=== PATIENT | female | born 1970 | race Caucasian/White ===

== ENCOUNTER 2017-11-13 20:03 | Inpatient (IN) | payer MEDICARE, MEDICAID ==
[~2017-11-13] VITALS: Ht 162.6 cm; Wt 109.8 kg
[~2017-11-13 20:03] MED LIST: ASPI325T8 PO; BUSP10TA PO; CHOL500016 PO; CLOM50CA2 PO; CRESTOR40 MG PO; LISI10TA2 PO; METF10003 PO; OMEG-33 PO; PRAZ1CAP2 PO; QUET100T PO; TRAZ150T49 PO
[2017-11-13 20:49] LABS: BASO # 0.1 x10^3/uL (0.0-0.2); BASO % 1 % (0-3); EOS # 0.1 x10^3/uL (0.0-0.7); EOS % 0 % (0-3); HEMATOCRIT 49.1 % (36.0-47.0); HEMOGLOBIN 16.5 g/dL (12.0-15.5); LYMPH # 2.5 x10^3/uL (1.0-4.8); LYMPH % 20 % (24-48); MEAN CORPUSCULAR HEMOGLOBIN 29 pg (25-35); MEAN CORPUSCULAR HGB CONC 34 g/dL (31-37); MEAN CORPUSCULAR VOLUME 85 fL (79-100); MONO # 0.7 x10^3/uL (0.0-1.1); MONO % 6 % (0-9); NEUT # 8.8 x10^3uL (1.8-7.7); NEUT % 73 % (31-73); PLATELET COUNT 337 x10^3/uL (140-400); RED BLOOD COUNT 5.76 x10^6/uL (3.50-5.40); RED CELL DISTRIBUTION WIDTH 12.8 % (11.5-14.5); WHITE BLOOD COUNT 12.1 x10^3/uL (4.0-11.0)
[2017-11-13 20:55] LABS: ALBUMIN 3.4 g/dL (3.4-5.0); ALBUMIN/GLOBULIN RATIO 0.8 (1.0-1.7); CREATININE 2.5 mg/dL (0.6-1.0); GFR 20.8; POTASSIUM 3.5 mmol/L (3.5-5.1); TOTAL BILIRUBIN 0.3 mg/dL (0.2-1.0); TOTAL PROTEIN 7.7 g/dL (6.4-8.2)
--- NOTE | 2017-11-13 21:19 | PHYS DOC ---
Past History Past Medical History: No Pertinent History Past Surgical History: No Surgical History Alcohol Use: None Drug Use: None Adult General Chief Complaint Chief Complaint: lightheadedness HPI HPI Patient is a 47 year old female who presents with complaint of of lightheadedness. Patient states that her symptoms have been present over the past 24 hours. Patient states that she is having difficulty ambulating due to her lightheadedness. Patient states that she feels like she is back pass out when she stands up. Patient notes that she has not been eating or drinking well over the past couple days. Patient denies any heat exposure and denies any recent travel. Patient currently does not have any complaints of pain. Patient has history of bipolar disorder, asthma, and is currently taking testosterone as she is currently undergoing gender reassignment. Patient denies any chest pain or shortness of breath. Patient has had nausea but denies vomiting or diarrhea. Denies any known history of kidney dysfunction. Review of Systems Review of Systems Constitutional: Denies fever or chills [] Eyes: Denies change in visual acuity, redness, or eye pain [] HENT: Denies nasal congestion or sore throat [] Respiratory: Denies cough or shortness of breath [] Cardiovascular: Near syncope, denies chest pain or edema[] GI: Denies abdominal pain, nausea, vomiting, bloody stools or diarrhea [] : Denies dysuria or hematuria [] Musculoskeletal: Denies back pain or joint pain [] Integument: Denies rash or skin lesions [] Neurologic: Denies headache, focal weakness or sensory changes [] All other systems were reviewed and found to be within normal limits, except as documented in this note. Current Medications Current Medications Current Medications Medications (Trade) Dose Ordered Sig/Aaron Start Time Stop Time Status Last Admin Dose Admin Sodium Chloride 1,000 ml @ 1,000 mls/hr Q1H 11/13/17 20:37 11/13/17 22:36 Allergies Allergies Allergies Coded Allergies Type Severity Reaction Last Updated Verified Penicillins Allergy Intermediate Rash 10/28/14 Yes cephalexin Allergy Intermediate Nausea 10/28/14 Yes ciprofloxacin Allergy Intermediate 02/29/16 Yes sulfamethoxazole Allergy Intermediate 02/29/16 Yes trimethoprim Allergy Intermediate 02/29/16 Yes Physical Exam Physical Exam Constitutional: Alert, afebrile, diaphoretic. [] HENT: Normocephalic, atraumatic, bilateral external ears normal, oropharynx moist, no oral exudates, nose normal. [] Eyes: PERRLA, EOMI, conjunctiva normal, no discharge. [] Neck: Normal range of motion, no tenderness, supple, no stridor. [] Cardiovascular: Tachycardic, regular rhythm, no murmur [] Lungs & Thorax: Bilateral breath sounds clear to auscultation [] Abdomen: Bowel sounds normal, soft, no tenderness, no masses, no pulsatile masses. [] Skin: Warm, moist, no erythema, no rash. [] Back: No tenderness, no CVA tenderness. [] Extremities: No tenderness, no cyanosis, no clubbing, ROM intact, no edema. [] Neurologic: Alert and oriented X 3, normal motor function, normal sensory function, no focal deficits noted. [] Current Patient Data Vital Signs Vital Signs Date Time Temp Pulse Resp B/P (MAP) Pulse Ox O2 Delivery O2 Flow Rate FiO2 11/14/17 01:20 98.6 94 22 135/93 (107) 98 Room Air Lab Results Laboratory Tests Test 11/13/17 20:12 11/13/17 20:22 Glucose (Fingerstick) 82 mg/dL (70-99) White Blood Count 12.1 x10^3/uL (4.0-11.0) H Red Blood Count 5.76 x10^6/uL (3.50-5.40) H Hemoglobin 16.5 g/dL (12.0-15.5) H Hematocrit 49.1 % (36.0-47.0) H Mean Corpuscular Volume 85 fL (79-100) Mean Corpuscular Hemoglobin 29 pg (25-35) Mean Corpuscular Hemoglobin Concent 34 g/dL (31-37) Red Cell Distribution Width 12.8 % (11.5-14.5) Platelet Count 337 x10^3/uL (140-400) Neutrophils (%) (Auto) 73 % (31-73) Lymphocytes (%) (Auto) 20 % (24-48) L Monocytes (%) (Auto) 6 % (0-9) Eosinophils (%) (Auto) 0 % (0-3) Basophils (%) (Auto) 1 % (0-3) Neutrophils # (Auto) 8.8 x10^3uL (1.8-7.7) H Lymphocytes # (Auto) 2.5 x10^3/uL (1.0-4.8) Monocytes # (Auto) 0.7 x10^3/uL (0.0-1.1) Eosinophils # (Auto) 0.1 x10^3/uL (0.0-0.7) Basophils # (Auto) 0.1 x10^3/uL (0.0-0.2) Sodium Level 137 mmol/L (136-145) Potassium Level 3.5 mmol/L (3.5-5.1) Chloride Level 96 mmol/L (98-107) L Carbon Dioxide Level 29 mmol/L (21-32) Anion Gap 12 (6-14) Blood Urea Nitrogen 15 mg/dL (7-20) Creatinine 2.5 mg/dL (0.6-1.0) H Estimated GFR (Cockcroft-Gault) 20.8 BUN/Creatinine Ratio 6 (6-20) Glucose Level 73 mg/dL (70-99) Calcium Level 9.0 mg/dL (8.5-10.1) Total Bilirubin 0.3 mg/dL (0.2-1.0) Aspartate Amino Transferase (AST) 58 U/L (15-37) H Alanine Aminotransferase (ALT) 70 U/L (14-59) H Alkaline Phosphatase 156 U/L (46-116) H Total Protein 7.7 g/dL (6.4-8.2) Albumin 3.4 g/dL (3.4-5.0) Albumin/Globulin Ratio 0.8 (1.0-1.7) L EKG EKG Interpreted by me: Heart rate 90, sinus rhythm, normal intervals, normal axis, no acute ST/T-wave abnormalities present[] Radiology/Procedures Radiology/Procedures Not performed[] Course & Med Decision Making Course & Med Decision Making Pertinent Labs and Imaging studies reviewed. (See chart for details) Patient was given 2 L of IV fluids in the emergency department which fulfilled the 30mL/kg bolus based off of ideal body weight. The patient was found to have evidence of urinary tract infection. Given patient's lactic acidosis, the patient met criteria for severe sepsis. Patient was initiated on IV antibiotics with meropenem due to listed multiple allergies to other antibiotics. The patient will need admission for further further treatment of sepsis. I spoke with Dr. Magana who accepted care of patient in hospital. Critical care time excluding procedures: 40 minutes Dragon Disclaimer Dragon Disclaimer This electronic medical record was generated, in whole or in part, using a voice recognition dictation system. Departure Departure: Impression: Primary Impression: Urinary tract infection Additional Impression: Severe sepsis Disposition: 09 ADMITTED INPATIENT Admitting Physician: Joe Magana Condition: GUARDED Referrals: PCP,NO (PCP) Problem Qualifiers Primary Impression: Urinary tract infection Urinary tract infection type: site unspecified Hematuria presence: without hematuria Qualified Codes: N39.0 - Urinary tract infection, site not specified ANTIONE ROYAL MD Nov 13, 2017 21:19
[2017-11-13] MEDS: IV NORMAL SALINE 1,000ML 1,000 ML IV SCH ×2 (21:49→21:50)
[2017-11-13 22:20] LABS: BACTERIA,URINE 0 /HPF (0-FEW); BILIRUBIN,URINE NEG (NEG); CLARITY,URINE CLOUDY; COLOR,URINE YELLOW; GLUCOSE,URINE NEG (NEG); NITRITE,URINE NEG (NEG); SQUAMOUS EPITHELIAL CELL,UR FEW /LPF; UROBILINOGEN,URINE 0.2 mg/dL (0.2 mg/dL); WBC,URINE 20-40 /HPF (0-4)
[2017-11-13 22:21] LABS: HYALINE CASTS, URINE MANY /HPF
[2017-11-13] MEDS ORDERED: MEROPENEM 1 GM in IV NORMAL SALINE 100ML 100 ML IV STA (22:36)
[2017-11-14] VITALS (10 sets, daily range): BP systolic 94–139; BP diastolic 62–93
[2017-11-14] MEDS ORDERED: MEROPENEM 1 GM VIAL IV ONE (00:34)
[2017-11-14] MEDS ORDERED: IV NORMAL SALINE 100ML 100 ML ONE (00:34)
[2017-11-14] MEDS ORDERED: ONDANSETRON PF 4 MG/2 ML VIAL. IV PRN (01:00)
--- NOTE | 2017-11-14 01:20 | NUR ---
Pt was admitted from ER to ICU bed 1 via [facility], accompanied by EMS & nursing staff. Pt self transferred over from gurney to bed independently.Pt c/o mild dizziness with the transfer over, but stated "that it is much improved." Admission assessment completed. VSS. Pt placed on Telemetry, S. Tach noted on monitor. Pt here for UTI, Sepsis and c/o Dizziness when standing. Pt currently denies pain or discomfort. Pt likes to be called Gume. Pt is female that is transitioning to male. Pt takes Testosterone (about 5 years now) and has had bilateral "Top surgery." Health history and home medications reviewed with pt. SCDs for VTE. Pt UTD on pneumonia vaccine. Pt lives at home with a "diabetic" cat. Pt was given written information regarding hospital policies, unit procedures and contact persons. Valuables were checked and left at bedside. Call light within reach. IVF started per order. Repeat Lactic was 0.7.
[2017-11-14] MEDS: IV NORMAL SALINE 1,000ML 1,000 ML IV SCH ×4 (01:23→21:00)
[2017-11-14] MEDS ORDERED: ALBU18HF INH (04:13)
[2017-11-14] MEDS ORDERED: CYPR4TAB37 PO (04:13)
[2017-11-14] MEDS ORDERED: MINO100C PO (04:13)
[2017-11-14] MEDS ORDERED: TEST200V3 INJ (04:13)
[2017-11-14] MEDS ORDERED: ROSU20TA27 PO (04:13)
[2017-11-14] MEDS ORDERED: ALPR1TAB6 PO (04:13)
[2017-11-14] MEDS ORDERED: LISI2.5T PO (04:13)
[2017-11-14] MEDS ORDERED: METF10003 PO (04:13)
[2017-11-14] MEDS ORDERED: BUSP15TA PO (04:13)
[2017-11-14] MEDS ORDERED: BUPR-192 PO (04:13)
[2017-11-14] MEDS ORDERED: HYDR25CA75 PO (04:13)
--- NOTE | 2017-11-14 06:29 | EKG ---
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
[2017-11-14] MEDS: IBUPROFEN 400 MG TABLET. PO PRN ×2 (07:53→21:21)
[2017-11-14] MEDS ORDERED: hydrOXYzine PAMOATE 25 MG CAPSULE PO PRN (08:45)
[2017-11-14] MEDS ORDERED: ALBUTEROL SULFATE 8GM INHALER. INH PRN (08:45)
[2017-11-14] MEDS: MINOCYCLINE 50 MG CAPSULE PO SCH ×2 (09:00→21:22)
[2017-11-14] MEDS ORDERED: TESTOSTERONE CYPIONATE INJ SCH (09:00)
[2017-11-14] MEDS ORDERED: ALBUTEROL SULFATE 2.5 MG/3 ML NEBU. NEB PRN (09:30)
[2017-11-14] MEDS: MEROPENEM 1 GM in IV NORMAL SALINE 100ML 100 ML IV SCH ×2 (10:06→21:21)
[2017-11-14] MEDS: LISINOPRIL 2.5 MG TABLET PO SCH (10:20)
[2017-11-14] MEDS: OMEGA-3 FATTY ACIDS/FISH OIL 1,000 MG CAPSULE. PO SCH ×2 (10:21→21:22)
[2017-11-14] MEDS: busPIRone 15 MG TABLET. PO SCH ×2 (10:21→21:21)
[2017-11-14] MEDS: buPROPion XL 150 MG TAB.ER.24H PO SCH (10:21)
[2017-11-14] MEDS ORDERED: metFORMIN 500 MG TABLET PO SCH (17:00)
[2017-11-14 17:12] LABS: CALCIUM 8.7 mg/dL (8.5-10.1); CREATININE 1.3 mg/dL (0.6-1.0); GFR 44.3; POTASSIUM 3.7 mmol/L (3.5-5.1)
--- NOTE | 2017-11-14 18:10 | HP ---
ADMIT DATE: 11/13/2017 HISTORY OF PRESENT ILLNESS: The patient is a 47-year-old, transgender, who came to the hospital complaining of lightheadedness. She stated that her symptom has been present for the last 24 hours. She said she is having difficulty ambulating due to lightheadedness. She does feel like she is about to pass when she stands up. She notes that she has not been eating or drinking over the past couple of days. She denied any heat exposure. Denied any recent travel. The patient currently does not have any complaints of pain. The patient has history of bipolar disorder, asthma and is currently taking testosterone as she is currently undergoing gender reassignment. The patient denied any chest pain or shortness of breath. She was evaluated in the Emergency Room, was found to have leukocytosis and urinary tract infection, was admitted with sepsis and urinary tract infection. Her urine was sent for culture and sensitivity and she was started empirically on IV Rocephin. PAST MEDICAL HISTORY: Significant for type 2 diabetes, hypertension, hyperlipidemia. PAST SURGICAL HISTORY: Significant for cholecystectomy, tonsillectomy, left ankle surgery, bilateral mastectomy. ALLERGIES: SHE IS ALLERGIC TO PENICILLIN, CEPHALEXIN, CIPROFLOXACIN, SULFAMETHOXAZOLE AND TRIMETHOPRIM. MEDICATIONS: She is currently on cyproheptadine, minocycline, albuterol sulfate, Crestor 20 mg at bedtime, omega-3 fatty acid 2 capsules p.o. b.i.d., lisinopril 2.5 mg daily, Wellbutrin 150 mg daily, alprazolam 1 mg b.i.d., buspirone ____ at bedtime, testosterone cypionate 0.5 mL injection every 2 weeks and metformin 1000 mg p.o. b.i.d. FAMILY HISTORY: She has 2 brothers and 1 sister, she is a half sister. One of her brothers has diabetes. Her father because of CVA. Her mother is still alive and has AFib. SOCIAL HISTORY: She is single and does not smoke, drink alcohol or use any recreational drugs. She is on disability. REVIEW OF SYSTEMS: As per history of present illness. PHYSICAL EXAMINATION: GENERAL: On examining her, she looked well and was clearly in no apparent respiratory distress, pale, but no jaundice, cyanosis, or thyromegaly. No jugular venous distention. No limb edema. VITAL SIGNS: Her heart rate was 73, blood pressure was 98/62, temperature was 97.8, respiratory rate 20, and oxygen saturation was 100%. HEENT: Showed normocephalic, atraumatic. NECK: Supple. HEART: Showed normal first and second heart sounds with no gallop, rub or murmur. CHEST: Clear to auscultation. No crepitation or rhonchi. ABDOMEN: Distended, soft, nontender. NEUROLOGIC: She was awake, alert, responding appropriately. Cranial nerves intact. EXTREMITIES: She moves extremities without difficulty. LABORATORY DATA: On admission showed that her white cell count was 12,000, hemoglobin 16.5, hematocrit 49, MCV 85 and platelet count 337,000. Her serum sodium was 137, potassium 3.5, chloride 96, bicarbonate 29, anion gap of 12, BUN 15, creatinine 2.5, estimated GFR was 20 mL per minute. Her glucose was 73. Lactic acid was 2.9. Calcium was 9. Total bilirubin normal; however, AST, ALT, alkaline phosphatase were elevated. Total protein was 7.7, albumin was 3.4. Urinalysis showed the urine was yellow, cloudy with a pH of 5, specific gravity of 1.025 with trace of protein. The urine was negative for glucose, trace of ketones, trace of blood, negative for nitrite, bilirubin. She has small amount of leukocyte esterase, 6-10 rbc's, 20-40 wbc's, 0 bacteria. ASSESSMENT AND PLAN: She was admitted with diagnoses of sepsis, urinary tract infection and acute kidney injury. We will continue with IV fluid and IV meropenem given the allergies that she has. We will follow her closely and decide on further management accordingly. CIRA COLUNGA MD DR: YARITZA/gisele JOB#: [id number] / [id number]
[2017-11-14] MEDS: LACTOBACILLUS RHAMNOSUS GG 1 CAPSULE. PO SCH (21:21)
[2017-11-14] MEDS: ATORVASTATIN CALCIUM 20 MG TABLET PO SCH (21:22)
[2017-11-14] MEDS: CYPROHEPTADINE 4 MG TABLET. PO SCH (21:22)
[2017-11-14] MEDS: ALPRAZolam 0.5 MG TABLET PO PRN (21:26)
[2017-11-15 05:44] VITALS: BP 114/70
[2017-11-15 07:55] LABS: BASO # 0.1 x10^3/uL (0.0-0.2); BASO % 1 % (0-3); EOS # 0.2 x10^3/uL (0.0-0.7); EOS % 3 % (0-3); HEMATOCRIT 39.7 % (36.0-47.0); LYMPH # 2.3 x10^3/uL (1.0-4.8); LYMPH % 41 % (24-48); MEAN CORPUSCULAR HEMOGLOBIN 28 pg (25-35); MEAN CORPUSCULAR HGB CONC 33 g/dL (31-37); MEAN CORPUSCULAR VOLUME 86 fL (79-100); MONO # 0.4 x10^3/uL (0.0-1.1); MONO % 7 % (0-9); NEUT # 2.7 x10^3uL (1.8-7.7); NEUT % 48 % (31-73); PLATELET COUNT 204 x10^3/uL (140-400); RED CELL DISTRIBUTION WIDTH 12.8 % (11.5-14.5); WHITE BLOOD COUNT 5.6 x10^3/uL (4.0-11.0)
[2017-11-15 08:08] LABS: ALBUMIN 2.5 g/dL (3.4-5.0); ALBUMIN/GLOBULIN RATIO 0.8 (1.0-1.7); CALCIUM 8.2 mg/dL (8.5-10.1); POTASSIUM 4.4 mmol/L (3.5-5.1); TOTAL BILIRUBIN 0.3 mg/dL (0.2-1.0); TOTAL PROTEIN 5.7 g/dL (6.4-8.2)
[2017-11-15] MEDS: buPROPion XL 150 MG TAB.ER.24H PO SCH (08:41)
[2017-11-15] MEDS: LACTOBACILLUS RHAMNOSUS GG 1 CAPSULE. PO SCH ×2 (08:41→21:09)
[2017-11-15] MEDS: busPIRone 15 MG TABLET. PO SCH ×2 (08:41→21:09)
[2017-11-15] MEDS: LISINOPRIL 2.5 MG TABLET PO SCH (08:41)
[2017-11-15] MEDS: MEROPENEM 1 GM in IV NORMAL SALINE 100ML 100 ML IV SCH ×2 (08:41→21:08)
[2017-11-15] MEDS: MINOCYCLINE 50 MG CAPSULE PO SCH ×2 (08:42→21:09)
[2017-11-15] MEDS: OMEGA-3 FATTY ACIDS/FISH OIL 1,000 MG CAPSULE. PO SCH ×2 (08:43→21:09)
[2017-11-15 09:12] LABS: % BANDS 1 % (0-9); % BASOS 1 % (0-3); % LYMPHS 43 % (24-48); % MONOS 5 % (0-10); % SEGS 50 % (35-66)
[2017-11-15 09:16] LABS: PLT ESTIMATE ADEQUATE (ADEQUATE)
[2017-11-15 11:46] VITALS: BP 106/68
[2017-11-15 16:13] VITALS: BP 109/66
[2017-11-15 19:51] VITALS: BP 106/70
[2017-11-15] MEDS: ATORVASTATIN CALCIUM 20 MG TABLET PO SCH (21:08)
[2017-11-15] MEDS: IBUPROFEN 400 MG TABLET. PO PRN (21:09)
[2017-11-15] MEDS: CYPROHEPTADINE 4 MG TABLET. PO SCH (21:09)
[2017-11-15] MEDS: ALPRAZolam 0.5 MG TABLET PO PRN (21:10)
[2017-11-15 22:27] VITALS: BP 121/75
--- NOTE | 2017-11-16 01:43 | PN ---
DATE: 11/15/2017 SUBJECTIVE: The patient is a 47-year-old female patient, who was admitted with dizziness, lightheadedness and she is ambulating. She is about to pass when she stands up. She notes that she has not been eating or drinking over the last few days and basically was investigated in the Emergency Room, was found to have urinary tract infection. Her lab work showed that she has leukocytosis and urinalysis showed that she was positive for leukocyte esterase and 20-40 wbc's and many, although there are no bacteria. Her chemistry initially showed that she has abnormal liver enzymes that are actually resolving, and so far, her blood culture is negative. Urine is still pending at the time of this dictation. OBJECTIVE: VITAL SIGNS: On examining, the patient's heart rate was 70, blood pressure 106/68, temperature 97.3, respiratory rate 20, and oxygen saturation was 100% on room air. HEAD, EYES, EARS, NOSE AND THROAT: Showed normocephalic, atraumatic. NECK: Supple. HEART: Showed normal first and second heart sounds with no gallop, rub or murmur. CHEST: Clear to auscultation. No crepitation or rhonchi. ABDOMEN: Distended, soft, nontender. No guarding or rigidity. No organomegaly. Hernial orifices intact. Bowel sounds are normal. NEUROLOGIC: She is awake, alert, responding appropriately. All her cranial nerves intact. She moves extremities without difficulty, ambulates without assistance or assistive devices. Intake was 1500, output 1150. LABORATORY DATA: As of this morning showed a serum sodium 142, potassium 4.4, chloride 106, bicarbonate 30, anion gap of 6, BUN 17, creatinine 1. Estimated GFR was 60 mL per minute. Glucose was 83, calcium was 8.2. Total bilirubin, AST, ALT were normal. Alkaline phosphatase slightly elevated, although trending down. Total protein was 5.7, albumin 2.5. Her white cell count was 5600, hemoglobin 13, hematocrit 39, MCV 86 and platelet count of 204,000. ASSESSMENT: Severe sepsis and urinary tract infection, although there are 20-40 wbc's. There are no bacteria. The patient is continued on IV fluid and IV meropenem. In retrospect, she seemed to be very dehydrated as her hemoglobin was 16.5, now 13, hematocrit 49, now 39 and her creatinine is 2.5, today it is 1. PLAN: We will await the result of the culture and sensitivity tomorrow and we can discharge her if we made arrangements for the culture and sensitivity to become available tomorrow. CIRA COLUNGA MD DR: YARITZA/gisele JOB#: [id number] / [id number]
[2017-11-16 05:35] VITALS: BP 111/74
[2017-11-16 07:08] LABS: BASO # 0.1 x10^3/uL (0.0-0.2); BASO % 1 % (0-3); EOS # 0.2 x10^3/uL (0.0-0.7); EOS % 3 % (0-3); HEMATOCRIT 36.8 % (36.0-47.0); HEMOGLOBIN 12.4 g/dL (12.0-15.5); LYMPH # 2.5 x10^3/uL (1.0-4.8); LYMPH % 43 % (24-48); MEAN CORPUSCULAR HEMOGLOBIN 29 pg (25-35); MEAN CORPUSCULAR HGB CONC 34 g/dL (31-37); MEAN CORPUSCULAR VOLUME 86 fL (79-100); MONO # 0.4 x10^3/uL (0.0-1.1); MONO % 7 % (0-9); NEUT # 2.7 x10^3uL (1.8-7.7); NEUT % 46 % (31-73); PLATELET COUNT 198 x10^3/uL (140-400); RED BLOOD COUNT 4.27 x10^6/uL (3.50-5.40); RED CELL DISTRIBUTION WIDTH 13.2 % (11.5-14.5); WHITE BLOOD COUNT 5.8 x10^3/uL (4.0-11.0)
[2017-11-16 07:18] LABS: ALBUMIN 2.4 g/dL (3.4-5.0); ALBUMIN/GLOBULIN RATIO 0.8 (1.0-1.7); CALCIUM 8.2 mg/dL (8.5-10.1); POTASSIUM 4.4 mmol/L (3.5-5.1); TOTAL BILIRUBIN 0.3 mg/dL (0.2-1.0); TOTAL PROTEIN 5.5 g/dL (6.4-8.2)
[2017-11-16] MEDS: buPROPion XL 150 MG TAB.ER.24H PO SCH (08:50)
[2017-11-16] MEDS: OMEGA-3 FATTY ACIDS/FISH OIL 1,000 MG CAPSULE. PO SCH (08:50)
[2017-11-16 08:51] VITALS: BP 111/74
[2017-11-16] MEDS: LACTOBACILLUS RHAMNOSUS GG 1 CAPSULE. PO SCH (08:51)
[2017-11-16] MEDS: MEROPENEM 1 GM in IV NORMAL SALINE 100ML 100 ML IV SCH (08:51)
[2017-11-16] MEDS: busPIRone 15 MG TABLET. PO SCH (08:51)
[2017-11-16] MEDS: MINOCYCLINE 50 MG CAPSULE PO SCH (08:51)
[2017-11-16] MEDS: LISINOPRIL 2.5 MG TABLET PO SCH (08:51)
--- NOTE | 2017-11-16 11:08 | DS ---
DATE OF DISCHARGE: 11/16/2017 HOSPITAL COURSE: The patient is a 47-year-old apparently transgender, who came to the Emergency Room with a complaint of lightheadedness, having difficulty ambulating and she feels like about to pass out when she stands up. She has been eating less and drinking this over the last few days. She denied; however, any heat exposure. Denied any recent travel, but denied any complaint. She was evaluated in the Emergency Room, was found to have mild leukocytosis and possible urinary tract infection. She was started on IV fluid and IV Rocephin. Initially, her lab work showed that she is extremely dehydrated. Her creatinine was 2.5. She did have also lactic acidosis. She did respond very well to the rehydration and such that her creatinine came down from 2.5-1 mg. She has remained afebrile throughout her stay here. Her blood culture and urine culture are so far negative without any growth for the last 2 days and given that she remained hemodynamically stable, afebrile with normal white cell count, a decision was made to discharge her home. PHYSICAL EXAMINATION: GENERAL: When I saw her today, she looked well and was clearly in no apparent respiratory distress, pale, but no jaundice or cyanosis. No lymphadenopathy, no thyromegaly. No jugular venous distension. No limb edema. VITAL SIGNS: Her heart rate was 72, blood pressure 111/74, temperature was 97.4, respiratory rate 20, and oxygen saturation was 97% on room air. HEAD, EYES, EARS, NOSE AND THROAT: Showed normocephalic, atraumatic. NECK: Supple. HEART: Showed normal first and second sounds. No gallop, rub or murmur. CHEST: Clear to auscultation. No crepitation or rhonchi. ABDOMEN: Distended, soft, nontender. NEUROLOGIC: Awake, alert, responding appropriately. All cranial nerves intact. Ambulating without assistance or assistive devices. LABORATORY DATA: Her lab work this morning showed a white cell count 5800, hemoglobin 12, hematocrit 36, MCV 86 and platelet count of 198,000. Serum sodium was 141, potassium 4.4, chloride 106, bicarbonate 31, anion gap of 4, BUN 16, creatinine 1, estimated GFR was 60 mL per minute, calcium was 8.2. Total bilirubin, AST, ALT were normal. Alkaline phosphatase slightly elevated. Total protein was 5.5, albumin was 2.4. FINAL DISCHARGE DIAGNOSES: 1. Acute kidney injury, resolved. 2. Lactic acidosis, resolved. 3. The patient has multiple other medical problems including type 2 diabetes, hypertension and hyperlipidemia. CIRA COLUNGA MD DR: YARITZA/gisele JOB#: [id number] / [id number]
--- NOTE | 2017-11-16 11:21 | NUR ---
Discharge Note: ESTELA CELESTE [address] Discharge instructions and discharge home medications reviewed with Patient and a copy given. All questions have been answered and understanding verbalized. The following instructions and handouts were given: MEDICATIONS, FOLLOW UP INSTRUCTIONS, AND EDUCATIONAL HANDOUTS GIVEN. Discontinued lines and drains: PERIPHERAL IV DISCONTINUED WITH NO COMPLICATIONS. Patient discharged to HOME with MOTHER via PRIVATE VEHICLE.
== END 2017-11-16 12:00 | disposition home or self-care (01) | DRG 871 ==
LOC: ER 20:03 → ICU 23:40 → 1 SOUTH 11-14 09:54
PROVIDERS: ADMIT Internal Medicine; ATTEND Internal Medicine
DX: A41.9 Sepsis, unspecified organism (principal); N17.0 Acute kidney failure with tubular necrosis; N39.0 Urinary tract infection, site not specified; R65.20 Severe sepsis without septic shock; E11.9 Type 2 diabetes mellitus without complications; E78.5 Hyperlipidemia, unspecified; E86.0 Dehydration; F31.9 Bipolar disorder, unspecified; F64.9 Gender identity disorder, unspecified; I10 Essential (primary) hypertension; J45.909 Unspecified asthma, uncomplicated; Z82.3 Family history of stroke; Z83.3 Family history of diabetes mellitus; Z90.13 Acquired absence of bilateral breasts and nipples; Z88.1 Allergy status to other antibiotic agents; Z88.0 Allergy status to penicillin; Z88.2 Allergy status to sulfonamides; Z88.8 Allergy status to other drugs, medicaments and biological substances; Z90.49 Acquired absence of other specified parts of digestive tract; Z90.89 Acquired absence of other organs; Z79.899 Other long term (current) drug therapy
CPT/HCPCS: 36415; 80048; 80053; 81001; 82947; 83605; 85007; 85025; 87040; 87086; 87641; 93005; 96365; J2185; 99291-25; J7030

== ENCOUNTER → 2018-01-16 | Outpatient (CLI) | payer MEDICARE, MEDICAID ==
[~2018-01-16] MED LIST changes: +ALBU18HF INH; +ALPR1TAB6 PO; +BUPR-192 PO; +BUSP15TA PO; +CYPR4TAB31 PO; +HYDR25CA75 PO; +LISI2.5T PO; +MINO100C PO; +ROSU20TA27 PO; +TEST200V3 INJ
[2018-01-16 15:58] LABS: ALBUMIN 3.1 g/dL (3.4-5.0); ALBUMIN/GLOBULIN RATIO 0.8 (1.0-1.7); C REACTIVE PROTEIN 1.2 mg/L (0-3.3); CALCIUM 8.7 mg/dL (8.5-10.1); CREATININE 1.4 mg/dL (0.6-1.0); GFR 40.7; POTASSIUM 4.1 mmol/L (3.5-5.1); TOTAL BILIRUBIN 0.3 mg/dL (0.2-1.0)
[2018-01-16 16:06] LABS: BASO # 0.1 x10^3/uL (0.0-0.2); BASO % 1 % (0-3); EOS # 0.1 x10^3/uL (0.0-0.7); EOS % 1 % (0-3); HEMATOCRIT 36.6 % (36.0-47.0); LYMPH # 2.1 x10^3/uL (1.0-4.8); LYMPH % 23 % (24-48); MEAN CORPUSCULAR HEMOGLOBIN 29 pg (25-35); MEAN CORPUSCULAR HGB CONC 33 g/dL (31-37); MEAN CORPUSCULAR VOLUME 88 fL (79-100); MONO # 0.4 x10^3/uL (0.0-1.1); MONO % 5 % (0-9); NEUT # 6.4 x10^3uL (1.8-7.7); NEUT % 70 % (31-73); PLATELET COUNT 271 x10^3/uL (140-400); RED BLOOD COUNT 4.15 x10^6/uL (3.50-5.40); RED CELL DISTRIBUTION WIDTH 14.7 % (11.5-14.5); WHITE BLOOD COUNT 9.1 x10^3/uL (4.0-11.0)
[2018-01-17 03:13] LABS: HEMOGLOBIN A1C 4.6 % (4.8-5.6)
[2018-01-17 08:10] LABS: C-PEPTIDE 7.2 ng/mL (1.1-4.4); INSULIN LEVEL 46.1 uIU/mL (2.6-24.9)
[2018-01-17 13:42] LABS: FREE T4 1.02 ng/dL (0.76-1.46); THYROID STIM HORMONE (TSH) 2.294 uIU/mL (0.358-3.740)
== END | disposition home or self-care (01) ==
LOC: LAB 13:26
PROVIDERS: ATTEND Obstetrics & Gynecology
DX: F64.0 Transsexualism (principal); I12.9 Hypertensive chronic kidney disease with stage 1 through stage 4 chronic kidney disease, or unspecified chronic kidney disease; E11.22 Type 2 diabetes mellitus with diabetic chronic kidney disease; N18.2 Chronic kidney disease, stage 2 (mild); Z90.89 Acquired absence of other organs; Z90.13 Acquired absence of bilateral breasts and nipples; Z68.42 Body mass index [BMI] 45.0-49.9, adult; Z88.2 Allergy status to sulfonamides; Z88.0 Allergy status to penicillin; Z88.1 Allergy status to other antibiotic agents; Z88.8 Allergy status to other drugs, medicaments and biological substances; Z79.899 Other long term (current) drug therapy
CPT/HCPCS: 36415; 80053; 80061; 82306; 83036; 83525; 84439; 84443; 84681; 85025; 86140

== ENCOUNTER → 2018-01-16 | Outpatient (CLI) | payer MEDICARE, MEDICAID ==
[2018-01-16 15:59] LABS: ALBUMIN 3.2 g/dL (3.4-5.0); DIRECT BILIRUBIN 0.1 mg/dL (0.0-0.2); TOTAL BILIRUBIN 0.3 mg/dL (0.2-1.0); TOTAL PROTEIN 6.5 g/dL (6.4-8.2)
== END | disposition home or self-care (01) ==
LOC: LAB 13:52
DX: F64.0 Transsexualism (principal); I12.9 Hypertensive chronic kidney disease with stage 1 through stage 4 chronic kidney disease, or unspecified chronic kidney disease; E11.22 Type 2 diabetes mellitus with diabetic chronic kidney disease; N18.2 Chronic kidney disease, stage 2 (mild); J45.909 Unspecified asthma, uncomplicated; E78.5 Hyperlipidemia, unspecified; Z90.49 Acquired absence of other specified parts of digestive tract; Z90.89 Acquired absence of other organs; Z90.13 Acquired absence of bilateral breasts and nipples; Z68.42 Body mass index [BMI] 45.0-49.9, adult
CPT/HCPCS: 80076

== ENCOUNTER 2018-02-15 22:20 | Emergency (ER) | payer MEDICARE, MEDICAID ==
[~2018-02-15] VITALS: Ht 162.6 cm; Wt 108.9 kg
[~2018-02-15 22:20] MED LIST changes: -METF10003 PO; +METF10007 PO
--- NOTE | 2018-02-15 22:30 | ED.ADGEN ---
Past History Past Medical History: Anxiety, Asthma, Diabetes, Other Past Surgical History: Appendectomy, Cholecystectomy Alcohol Use: None Drug Use: None Adult General Chief Complaint Chief Complaint ".. I had move in to apt... and my old cat had been getting along well with the new cats... but when I put them together... Guera my old cat attacked the new cats.. when I picked her up she bite the back of october hand.. .. she never mean to me.. she was just upset. .. with the cat fight... I wash it right away... I probably need a tetanus up date.. I don't remember my last one.. " HPI HPI Patient is a 47 year old female who presents with above hx and complaints Bite to the dorsum of left hand. Patient has 2 small punctures and a scratch on the back of left hand. Distal neurovascular intact. Patient did clean with wound immediately. Guera is a 13-year-old cat is up-to-date with vaccinations. Her behavior prior to the Fight has been normal. Patient denies any history immunosuppression. No history of travel. No history of ill contacts. Patient states he is allergic to almost all antibiotics. Patient normally follows with Dr. Giraldo. Patient is right-hand dominant. Review of Systems Review of Systems Constitutional: Denies fever or chills [] Eyes: Denies change in visual acuity, redness, or eye pain [] HENT: Denies nasal congestion or sore throat [] Respiratory: Denies cough or shortness of breath [] Cardiovascular: No additional information not addressed in HPI [] GI: Denies abdominal pain, nausea, vomiting, bloody stools or diarrhea [] : Denies dysuria or hematuria [] Musculoskeletal: Denies back pain or joint pain [] Integument: Denies rash or skin lesions []complaints of Bite dorsum of left hand Neurologic: Denies headache, focal weakness or sensory changes [] Endocrine: Denies polyuria or polydipsia [] All other systems were reviewed and found to be within normal limits, except as documented in this note. Family History Family History Noncontributory Current Medications Current Medications Current Medications Medications (Trade) Dose Ordered Sig/Aaron Start Time Stop Time Status Last Admin Dose Admin Bacitracin/ Polymyxin B Sulfate (Polysporin) 1 jimmy 1X ONCE 02/15/18 23:00 02/15/18 23:01 DC 02/15/18 23:04 1 JIMMY Doxycycline Hyclate (Vibra-Tab) 100 mg 1X ONCE 02/15/18 23:00 02/15/18 23:01 DC 02/15/18 23:04 100 MG Tetanus/ Diphtheria Toxoids Adsorbed (Tenivac Vial) 0.5 ml ONCE ONCE 02/15/18 23:00 02/15/18 23:01 DC 02/15/18 23:05 0.5 ML Allergies Allergies Allergies Coded Allergies Type Severity Reaction Last Updated Verified Penicillins Allergy Intermediate Rash 10/28/14 Yes cephalexin Allergy Intermediate Nausea 10/28/14 Yes ciprofloxacin Allergy Intermediate 02/29/16 Yes sulfamethoxazole Allergy Intermediate 02/29/16 Yes trimethoprim Allergy Intermediate 02/29/16 Yes Physical Exam Physical Exam Constitutional: , no acute distress, non-toxic appearance. [] HENT: Normocephalic, atraumatic, bilateral external ears normal, oropharynx moist, no oral exudates, nose normal. [] Eyes: PERRLA, EOMI, conjunctiva normal, no discharge. [] Neck: Normal range of motion, no tenderness, supple, no stridor. [] Cardiovascular:Heart rate regular rhythm, no murmur [] Lungs & Thorax: Bilateral breath sounds clear to auscultation [] Abdomen: Bowel sounds normal, soft, no tenderness, no masses, no pulsatile masses. [] Obese. Old surgical scars. Skin: Warm, dry, no erythema, no rash. [] Bite as per history of present illness Back: No tenderness, no CVA tenderness. [] Extremities: No tenderness, no cyanosis, no clubbing, ROM intact, no edema. [] Neurologic: Alert and oriented X 3, normal motor function, normal sensory function, no focal deficits noted. [] Psychologic: Affect normal, judgement normal, mood normal. [] Current Patient Data Vital Signs Vital Signs Date Time Temp Pulse Resp B/P (MAP) Pulse Ox O2 Delivery O2 Flow Rate FiO2 02/15/18 22:51 97.7 104 20 98 Room Air EKG EKG [] Radiology/Procedures Radiology/Procedures Declines x-ray at this time.[] Course & Med Decision Making Course & Med Decision Making Pertinent Labs and Imaging studies reviewed. (See chart for details). Patient keep bite area clean and dry. Patient to do Epson salts soaks 4 times a day. After soaks apply Polysporin 4 times a day. Take doxycycline 100 mg twice a day. Keep follow-up with Dr. Giraldo. Explained to patient this is a high risk wound. Patient states understanding has previous history of Bites and scratches. [] Final Impression Final Impression 1. Cat bite[] Dragon Disclaimer Dragon Disclaimer This electronic medical record was generated, in whole or in part, using a voice recognition dictation system. YURI ALCANTARA MD Feb 15, 2018 22:30
[2018-02-15 22:51] VITALS: BP 137/80
[2018-02-15] MEDS ORDERED: DOXY100T9 PO (22:51)
[2018-02-15] MEDS ORDERED: BACITRACIN/POLYMYXIN B TOPICAL OINT 15GM TUBE. TP ONE (23:00)
[2018-02-15] MEDS ORDERED: DOXYCYCLINE HYCLATE 100 MG TABLET PO ONE (23:00)
[2018-02-15] MEDS ORDERED: TETANUS AND DIPHTHERIA TOX/PF 0.5 ML VIAL. VAX IM ONE (23:00)
== END 2018-02-15 23:10 | disposition home or self-care (01) ==
LOC: ER 22:20
DX: S61.451A Open bite of right hand, initial encounter (principal); F41.9 Anxiety disorder, unspecified; J45.909 Unspecified asthma, uncomplicated; E11.9 Type 2 diabetes mellitus without complications; Z88.1 Allergy status to other antibiotic agents; Z88.0 Allergy status to penicillin; W55.01XA Bitten by cat, initial encounter; Y93.89 Activity, other specified; Y92.89 Other specified places as the place of occurrence of the external cause; Y99.8 Other external cause status
CPT/HCPCS: 90471; 90714; 99283-25

== ENCOUNTER 2018-07-05 18:40 | Emergency (ER) | payer MEDICARE, MEDICAID ==
[~2018-07-05] VITALS: Ht 162.6 cm; Wt 117.9 kg
[~2018-07-05 18:40] MED LIST changes: -ALBU18HF INH; +ALBU2.5V8 INH; +DOXY100T9 PO
[2018-07-05 18:54] VITALS: BP 156/84
--- NOTE | 2018-07-05 18:54 | ED.ADGEN ---
Past History Past Medical History: Anxiety, Asthma, Diabetes, Other Past Surgical History: Appendectomy, Cholecystectomy, Tonsillectomy, Other Alcohol Use: None Drug Use: None Adult General Chief Complaint Chief Complaint "...My blind cat Humphrey scratched me while I was cleaning out his cage...." HPI HPI Patient is a 48 year old female who presents with scratch by a 14 year old blind cat today. His been confined to a cage for the past 1.4 years. Cat is due for " put down" by a vet this coming week. He has not ill but is blind. Patient is normally healthy. He is allergic to multiple antibiotics. Patient can take doxycycline well and has taken in the past. No history immunosuppression. Up-to-date on tetanus. P.t last glucose check was 80's. No recent travel. Patient normally follows with Dr. Giraldo. Pt. last period was 2014 and dx of post menopausal. Review of Systems Review of Systems Constitutional: Denies fever or chills [] Eyes: Denies change in visual acuity, redness, or eye pain [] HENT: Denies nasal congestion or sore throat [] Respiratory: Denies cough or shortness of breath [] Cardiovascular: No additional information not addressed in HPI [] GI: Denies abdominal pain, nausea, vomiting, bloody stools or diarrhea [] : Denies dysuria or hematuria [] Musculoskeletal: Denies back pain or joint pain [] Integument: Denies rash or skin lesions patient has[]complaints of Scratches of left forearm Neurologic: Denies headache, focal weakness or sensory changes [] Endocrine: Denies polyuria or polydipsia [] All other systems were reviewed and found to be within normal limits, except as documented in this note. Family History Family History Non-contributory Current Medications Current Medications Current Medications Medications (Trade) Dose Ordered Sig/Aaron Start Time Stop Time Status Last Admin Dose Admin Doxycycline Hyclate (Vibra-Tab) 100 mg 1X ONCE 07/05/18 19:15 07/05/18 19:16 DC 07/05/18 19:18 100 MG Allergies Allergies Allergies Coded Allergies Type Severity Reaction Last Updated Verified Penicillins Allergy Intermediate Rash 10/28/14 Yes cephalexin Allergy Intermediate Nausea 10/28/14 Yes ciprofloxacin Allergy Intermediate 02/29/16 Yes sulfamethoxazole Allergy Intermediate 02/29/16 Yes trimethoprim Allergy Intermediate 02/29/16 Yes Physical Exam Physical Exam Constitutional: , no acute distress, non-toxic appearance. [] HENT: Normocephalic, atraumatic, bilateral external ears normal, oropharynx moist, no oral exudates, nose normal. [] Eyes: PERRLA, EOMI, conjunctiva normal, no discharge. [] Neck: Normal range of motion, no tenderness, supple, no stridor. [] Cardiovascular:Heart rate regular rhythm, no murmur [] Lungs & Thorax: Bilateral breath sounds clear to auscultation [] Abdomen: Bowel sounds normal, soft, no tenderness, no masses, no pulsatile masses. [] Obesity. Old surgery scars. Skin: Warm, dry, no erythema, no rash. [] Cat scratches on left forearm Back: No tenderness, no CVA tenderness. [] Extremities: No tenderness, no cyanosis, no clubbing, ROM intact, no edema. [] Neurologic: Alert and oriented X 3, normal motor function, normal sensory function, no focal deficits noted. [] Psychologic: Affect normal, judgement normal, mood normal. [] Current Patient Data Vital Signs Vital Signs Date Time Temp Pulse Resp B/P (MAP) Pulse Ox O2 Delivery O2 Flow Rate FiO2 07/05/18 18:54 98.1 86 18 98 Room Air EKG EKG [] Radiology/Procedures Radiology/Procedures [] Course & Med Decision Making Course & Med Decision Making Pertinent Labs and Imaging studies reviewed. (See chart for details). He Thrashes clean and dry. Massage Polysporin and wound 4 times a day. Take doxycycline 100 mg twice a day. Tylenol and ibuprofen for pain. Return if any concerns. [] Final Impression Final Impression 1. Cat scratches[] Dragon Disclaimer Dragon Disclaimer This electronic medical record was generated, in whole or in part, using a voice recognition dictation system. Dragon Disclaimer This chart was dictated in whole or in part using Voice Recognition software in a busy, high-work load, and often noisy Emergency Department environment. It may contain unintended and wholly unrecognized errors or omissions. Dragon Disclaimer This chart was dictated in whole or in part using Voice Recognition software in a busy, high-work load, and often noisy Emergency Department environment. It may contain unintended and wholly unrecognized errors or omissions. Discharge Summary Visit Information Final Diagnosis Problems Medical Problems: (1) Cat scratch of left forearm Status: Acute Brief Hospital Course Allergies Allergies Coded Allergies Type Severity Reaction Last Updated Verified Penicillins Allergy Intermediate Rash 10/28/14 Yes cephalexin Allergy Intermediate Nausea 10/28/14 Yes ciprofloxacin Allergy Intermediate 02/29/16 Yes sulfamethoxazole Allergy Intermediate 02/29/16 Yes trimethoprim Allergy Intermediate 02/29/16 Yes Vital Signs Vital Signs Date Time Temp Pulse Resp B/P (MAP) Pulse Ox O2 Delivery O2 Flow Rate FiO2 07/05/18 18:54 98.1 86 18 98 Room Air Brief Hospital Course Ms. Huffman is a 48 old female who presented with cat scratches Lt forearm . Discharge Information Condition at Discharge: Stable Disposition/Orders: D/C to Home Dischare Medications Current Medications Doxycycline Hyclate (Vibra-Tab) 100 mg 1X ONCE PO Last administered on at 19:18; Admin Dose 100 MG; Start 07/05/18 at 19:15; Stop 07/05/18 at 19:16; Status DC Active Scripts Active Doxycycline Hyclate 100 Mg Tablet.dr 100 Mg PO BID 10 Days Doxycycline Hyclate 100 Mg Tablet.dr 100 Mg PO TWICE A DAY 10 Days Reported Buspirone Hcl 15 Mg Tablet 15 Mg PO BID LAST DOSE GIVEN: DATE: TODAY TIME: AM NEXT DOSE DUE: DATE: TODAY TIME: PM Bupropion Xl (Bupropion Hcl) 150 Mg Tab.er.24h 150 Mg PO DAILY LAST DOSE GIVEN: DATE: TIME: AM NEXT DOSE DUE: DATE: TOMORROW TIME: AM Minocycline Hcl 100 Mg Capsule 100 Mg PO BID LAST DOSE GIVEN: DATE: TODAY TIME: AM NEXT DOSE DUE: DATE: TODAY TIME: PM Testosterone Cypionate 200 Mg/1 Ml Vial 0.5 Ml INJ Q2WKS NOT GIVEN THIS ADMISSION. CONTINUE PER HOME SCHEDULE. DATE: TIME: NEXT DOSE DUE: DATE: TIME: Cyproheptadine Hcl 4 Mg Tablet 4 Mg PO HS LAST DOSE GIVEN: DATE: YESTERDAY TIME: AT BEDTIME NEXT DOSE DUE: DATE: TODAY TIME: AT BEDTIME Ventolin Hfa Inhaler (Albuterol Sulfate) 18 Gm Hfa.aer.ad 2 Puff INH PRN Q4HRS PRN NOT GIVEN THIS ADMISSION NEXT DOSE DUE: DATE: TODAY TIME: IF/WHEN NEEDED DATE: TIME: Metformin Hcl 1,000 Mg Tablet 1,000 Mg PO BID NOT GIVEN THIS ADMISSION NEXT DOSE DUE: DATE: TODAY TIME: PM DATE: TIME: Lisinopril 2.5 Mg Tablet 2.5 Mg PO DAILY LAST DOSE GIVEN: DATE: TODAY TIME: AM NEXT DOSE DUE: DATE: TOMORR TIME: AM Hydroxyzine Pamoate 25 Mg Capsule 50 Cap PO HS PRN NOT GIVEN THIS ADMISSION NEXT DOSE DUE: DATE: TIME: IF NEEDED AT BEDTIME DATE: TIME: Alprazolam 1 Mg Tablet 1 Mg PO PRN BID PRN LAST DOSE GIVEN: DATE: YESTER TIME: 9:10 PM NEXT DOSE DUE: DATE: TODAY TIME: IF/WHEN NEEDED Rosuvastatin Calcium 20 Mg Tablet 20 Mg PO HS LAST DOSE GIVEN: DATE: TIME: AT BEDTIME NEXT DOSE DUE: DATE: TIME: AT BEDTIME [place] 3 1,000 Mg Softgel ([place]-3 Fatty Acids/Fish Oil) 1 Each Capsule 2 Cap PO BID LAST DOSE GIVEN: DATE: TIME: AM NEXT DOSE DUE: DATE: TIME: PM Discharge Summary Visit Information Final Diagnosis Problems Medical Problems: (1) Cat scratch of left forearm Status: Acute Brief Hospital Course Allergies Allergies Coded Allergies Type Severity Reaction Last Updated Verified Penicillins Allergy Intermediate Rash 10/28/14 Yes cephalexin Allergy Intermediate Nausea 10/28/14 Yes ciprofloxacin Allergy Intermediate 02/29/16 Yes sulfamethoxazole Allergy Intermediate 02/29/16 Yes trimethoprim Allergy Intermediate 02/29/16 Yes Vital Signs Vital Signs Date Time Temp Pulse Resp B/P (MAP) Pulse Ox O2 Delivery O2 Flow Rate FiO2 07/05/18 18:54 98.1 86 18 98 Room Air Brief Hospital Course Ms. Huffman is a 48 old [sex] who presented with [ ] Discharge Information Dischare Medications Current Medications Doxycycline Hyclate (Vibra-Tab) 100 mg 1X ONCE PO Last administered on at 19:18; Admin Dose 100 MG; Start 07/05/18 at 19:15; Stop 07/05/18 at 19:16; Status DC Active Scripts Active Doxycycline Hyclate 100 Mg Tablet.dr 100 Mg PO BID 10 Days Doxycycline Hyclate 100 Mg Tablet.dr 100 Mg PO TWICE A DAY 10 Days Reported Buspirone Hcl 15 Mg Tablet 15 Mg PO BID LAST DOSE GIVEN: DATE: TIME: AM NEXT DOSE DUE: DATE: TODAY TIME: PM Bupropion Xl (Bupropion Hcl) 150 Mg Tab.er.24h 150 Mg PO DAILY LAST DOSE GIVEN: DATE: TIME: AM NEXT DOSE DUE: DATE: TOMORR TIME: AM Minocycline Hcl 100 Mg Capsule 100 Mg PO BID LAST DOSE GIVEN: DATE: TIME: AM NEXT DOSE DUE: DATE: TODAY TIME: PM Testosterone Cypionate 200 Mg/1 Ml Vial 0.5 Ml INJ Q2WKS NOT GIVEN THIS ADMISSION. CONTINUE PER HOME SCHEDULE. DATE: TIME: NEXT DOSE DUE: DATE: TIME: Cyproheptadine Hcl 4 Mg Tablet 4 Mg PO HS LAST DOSE GIVEN: DATE: YES TIME: AT BEDTIME NEXT DOSE DUE: DATE: TIME: AT BEDTIME Ventolin Hfa Inhaler (Albuterol Sulfate) 18 Gm Hfa.aer.ad 2 Puff INH PRN Q4HRS PRN NOT GIVEN THIS ADMISSION NEXT DOSE DUE: DATE: TIME: IF/WHEN NEEDED DATE: TIME: Metformin Hcl 1,000 Mg Tablet 1,000 Mg PO BID NOT GIVEN THIS ADMISSION NEXT DOSE DUE: DATE: TIME: PM DATE: TIME: Lisinopril 2.5 Mg Tablet 2.5 Mg PO DAILY LAST DOSE GIVEN: DATE: TIME: AM NEXT DOSE DUE: DATE: TIME: AM Hydroxyzine Pamoate 25 Mg Capsule 50 Cap PO HS PRN NOT GIVEN THIS ADMISSION NEXT DOSE DUE: DATE: TIME: IF NEEDED AT BEDTIME DATE: TIME: Alprazolam 1 Mg Tablet 1 Mg PO PRN BID PRN LAST DOSE GIVEN: DATE: TIME: 9:10 PM NEXT DOSE DUE: DATE: TIME: IF/WHEN NEEDED Rosuvastatin Calcium 20 Mg Tablet 20 Mg PO HS LAST DOSE GIVEN: DATE: TIME: AT BEDTIME NEXT DOSE DUE: DATE: TODAY TIME: AT BEDTIME [place] 3 1,000 Mg Softgel ([place]-3 Fatty Acids/Fish Oil) 1 Each Capsule 2 Cap PO BID LAST DOSE GIVEN: DATE: TIME: AM NEXT DOSE DUE: DATE: TODAY TIME: PM YURI ALCANTARA MD Jul 05, 2018 18:53
[2018-07-05] MEDS ORDERED: DOXYCYCLINE HYCLATE 100 MG TABLET PO ONE (19:15)
[2018-07-05] MEDS ORDERED: DOXY100T9 PO (19:29)
== END 2018-07-05 19:32 | disposition home or self-care (01) ==
LOC: ER 18:40
DX: S50.812A Abrasion of left forearm, initial encounter (principal); F41.9 Anxiety disorder, unspecified; J45.909 Unspecified asthma, uncomplicated; E11.9 Type 2 diabetes mellitus without complications; Z88.0 Allergy status to penicillin; Z88.1 Allergy status to other antibiotic agents; Z88.2 Allergy status to sulfonamides; W55.03XA Scratched by cat, initial encounter; Y93.89 Activity, other specified; Y92.89 Other specified places as the place of occurrence of the external cause; Y99.8 Other external cause status
CPT/HCPCS: 99283

== ENCOUNTER → 2019-01-31 | Outpatient (CLI) | payer MEDICARE, MEDICAID ==
[~2019-01-31] MED LIST changes: -ROSU20TA27 PO; +ROSU20TA28 PO
[2019-02-04 07:07] LABS: TESTOSTERONE FREE 11.53 ng/dL (0.10-0.85); TESTOSTERONE TOTAL 529 ng/dL (8-48)
== END | disposition home or self-care (01) ==
LOC: LAB 11:58
PROVIDERS: ATTEND Internal Medicine Endocrinology, Diabetes & Metabolism
DX: F64.0 Transsexualism (principal)
CPT/HCPCS: 36415; 84402; 84403

== ENCOUNTER → 2020-09-17 | Outpatient (CLI) | payer MEDICARE, MEDICAID ==
[~2020-09-17] MED LIST changes: -BUPR-192 PO; +BUPR150T21 PO; +DOXY-96 PO; -DOXY100T9 PO; +LISI10TA16 PO; -LISI10TA2 PO; -MINO100C PO; +MINO100C61 PO
== END ==
LOC: LAB 12:16
PROVIDERS: ATTEND Internal Medicine Cardiovascular Disease
DX: E78.49 Other hyperlipidemia (principal); Z82.49 Family history of ischemic heart disease and other diseases of the circulatory system
CPT/HCPCS: 80061

== ENCOUNTER → 2020-09-17 | Outpatient (CLI) | payer MEDICARE, MEDICAID ==
[2020-09-18 10:48] LABS: FREE T4 1.32 ng/dL (0.76-1.46); THYROID STIM HORMONE (TSH) 0.012 uIU/mL (0.358-3.740)
== END ==
LOC: LAB 12:22
PROVIDERS: ATTEND Obstetrics & Gynecology
DX: E88.81 Metabolic syndrome and other insulin resistance (principal); B37.9 Candidiasis, unspecified; F31.0 Bipolar disorder, current episode hypomanic; Z79.899 Other long term (current) drug therapy
CPT/HCPCS: 80061; 84402; 84403; 84439; 84443

== ENCOUNTER 2021-01-20 18:58 | Emergency (ER) | payer MEDICARE, MEDICAID ==
[~2021-01-20] VITALS: Ht 162.6 cm; Wt 109.5 kg
[~2021-01-20 18:58] MED LIST changes: -LISI2.5T PO; +LISI2.5T12 PO; -QUET100T PO; +QUET100T2 PO
[2021-01-20 19:42] VITALS: BP 164/95
--- NOTE | 2021-01-20 20:10 | PHYS DOC ---
Past History Past Medical History: Anxiety, Asthma, Diabetes, Other Past Surgical History: No Surgical History Alcohol Use: None Drug Use: None General Adult EDM: Chief Complaint: FINGER INJURY HPI: HPI: 50-year-old male presents to the emergency room complaining of left middle finger pain which has been present for several hours with no identifiable injury. He reports deformity in the finger with the finger held in flexion. He states that he has been out for about 40 hours because he recently had an EEG today. He believes that he may have hit the finger against his leg. He denies any further pain or symptoms. Reports some numbness to the distal fingertip. The patient denies nausea, vomiting, fever, chills, chest pain, shortness of breath, abdominal pain, urinary symptoms, cough, recent trauma, or any other complaints. Review of Systems: Review of Systems: Review of systems is otherwise unremarkable except for what was mentioned in the HPI. Allergies: Allergies: Allergies Coded Allergies Type Severity Reaction Last Updated Verified Penicillins Allergy Intermediate Rash 10/28/14 Yes cephalexin Allergy Intermediate Nausea 10/28/14 Yes ciprofloxacin Allergy Intermediate 02/29/16 Yes sulfamethoxazole Allergy Intermediate 02/29/16 Yes trimethoprim Allergy Intermediate 02/29/16 Yes Physical Exam: PE: Constitutional: No acute distress, non-toxic appearance. Neck: Normal range of motion, supple, no stridor. Cardiovascular: Heart rate regular rhythm. 2+ radial pulses Lungs & Thorax: No respiratory distress, symmetrical expansion. Skin: No overlying skin changes to the left hand Extremities: Left middle finger is held in flexion about the DIP joint, there is no further deformity, there is no tenderness to palpation, passive range of motion is intact, active range of motion is limited at the DIP joint of the left third finger at the DIP joint Neurologic: Alert and oriented X 3, normal motor function, normal sensory function, no focal deficits noted. Non ataxic gait. GCS 15. Psychologic: Affect normal, judgment normal, mood normal. Current Patient Data: Vital Signs: Vital Signs Date Time Temp Pulse Resp B/P (MAP) Pulse Ox O2 Delivery O2 Flow Rate FiO2 01/20/21 19:42 98.9 88 22 164/95 100 Room Air Radiology/Procedures: Radiology/Procedures: 3 views of left long finger dated 01/20/2021. No comparison available. Clinical indication: Pain. FINDINGS: 3 views of left long finger show normal bony alignment. No displaced fracture. No periostitis or bone destruction. No acute osseous or articular abnormality. IMPRESSION: No acute findings. Electronically signed by: Travis Cohen MD (01/20/2021 8:50 PM) Heart Score: C/O Chest Pain: No Course & Med Decision Making: Course & Med Decision Making Xr as above which was normal, advised to ice and use ibupofen, tylenol Departure Departure: Impression: Primary Impression: Contusion of left middle finger Disposition: HOME / SELF CARE / HOMELESS Condition: GOOD Referrals: EBER LEONE (PCP) Patient Instructions: Contusion, [id number] Additional Instructions: You were seen in the emergency department for a musculoskeletal problem that will likely get better over time. You may utilize something called the "RICE" protocol (Rest, Ice, Compresses, Elevation) to help alleviate your pain: ? Hold off on doing intense exercise that may make the pain worse. Sometimes gentle stretching can provide relief, but be careful to avoid further injury. It is important to perform gentle range of motion exercises to prevent stiff joints and chronic pain. ? Use ice packs over the affected area to help decrease your pain. Ice can work as a numbing agent over your painful area. For the first 24 hours, apply ice 2-4 times per day for a maximum 15-20 minutes each time. Ice should be in a plastic bag. ? You may use warm compresses to help improve blood flow and decrease swelling. Alternating with ice packs and warm compresses works well. ? You may elevate the affected area to help improve drainage and reduce swelling, which will also help your pain. NOBLE GRAY DO Jan 20, 2021 20:10
--- NOTE | 2021-01-20 20:53 | RAD ---
3 views of left long finger dated 01/20/2021. No comparison available. Clinical indication: Pain. FINDINGS: 3 views of left long finger show normal bony alignment. No displaced fracture. No periostitis or bone destruction. No acute osseous or articular abnormality. IMPRESSION: No acute findings. Electronically signed by: Travis Cohen MD (01/20/2021 8:50 PM) [facility]
== END 2021-01-20 21:00 | disposition home or self-care (01) ==
LOC: ER 18:58
DX: S60.032A Contusion of left middle finger without damage to nail, initial encounter (principal); J45.909 Unspecified asthma, uncomplicated; E11.9 Type 2 diabetes mellitus without complications; Z88.0 Allergy status to penicillin; Z88.1 Allergy status to other antibiotic agents; Z88.2 Allergy status to sulfonamides; X58.XXXA Exposure to other specified factors, initial encounter; Y93.89 Activity, other specified; Y92.89 Other specified places as the place of occurrence of the external cause; Y99.8 Other external cause status
CPT/HCPCS: 73140; 99283